=== PATIENT | female | born 1985 | race American Indian/Alaskan Native ===

== ENCOUNTER → 2016-05-26 | Outpatient (CLI) | payer BC ==
[~2016-05-26] MED LIST: ALPR1TAB2 PO; DOCU-30 PO; HYDR-882 PO; IBUP800T PO; METH500T97 PO; NORE-40 PO; OXYC-302 PO; TRAM50TA2 PO
== END | disposition home or self-care (01) ==
LOC: CFH 14:26
PROVIDERS: ATTEND Obstetrics & Gynecology
DX: N64.4 Mastodynia (principal)